=== PATIENT | female | born 1940 | race African-American/Black ===

== ENCOUNTER 2023-02-04 11:52 | Emergency (ER) | payer MEDICARE ==
[~2023-02-04] VITALS: Ht 157.5 cm; Wt 66.7 kg
[2023-02-04 12:18] VITALS: BP 113/81
--- NOTE | 2023-02-04 12:25 | NUR ---
PT MOVED TO BED 10 BY [facility]
[2023-02-04] MEDS ORDERED: NACL 0.9% 1,000 ML IV ONE (13:05)
[2023-02-04] MEDS ORDERED: VANCOMYCIN 1GM/DEXT 5% PREMIX 200 ML IV ONE (14:45)
[2023-02-04] MEDS ORDERED: MEROPENEM 1,000 MG in NACL 0.9% 50 ML IV ONE (14:45)
[2023-02-04] MEDS ORDERED: VANCOMYCIN PER PHARMACY MC PRN (14:45)
[2023-02-04] MEDS ORDERED: VANCOMYCIN 1,000 MG VIAL ONE (15:10)
[2023-02-04 15:12] LABS: BASOPHILS # (AUTO) 0.1 K/uL (0.00-0.22); BASOPHILS % (AUTO) 0.5 % (0.0-2.0); EOSINOPHILS % (AUTO) 0.1 % (0.0-4.0); HEMATOCRIT 33.4 % (36-48); HEMOGLOBIN 10.3 g/dL (12.0-16.0); LYMPHOCYTES # (AUTO) 3.2 K/uL (2.5-16.5); LYMPHOCYTES % (AUTO) 18.1 % (20.5-51.1); MEAN CORPUSCULAR HEMOGLOBIN 28 pg (27-31); MEAN CORPUSCULAR HGB CONC 31 g/dL (33-37); MONOCYTES # (AUTO) 0.8 K/uL (0.8-1.0); MONOCYTES % (AUTO) 4.6 % (1.7-9.3); NEUTROPHILS # (AUTO) 13.4 K/uL (1.8-7.7); NEUTROPHILS % (AUTO) 76.7 % (42.2-75.2); PLATELET COUNT (AUTO) 237 K/uL (140-450); RED BLOOD CELL COUNT(AUTO) 3.67 MIL/uL (4.20-5.40); RED CELL DISTRIBUTION WIDTH 16.3 % (11.6-13.7); WHITE BLOOD COUNT (AUTO) 17.4 K/uL (4.8-10.8)
[2023-02-04] MEDS ORDERED: VANCOMYCIN 1,000 MG in DEXTROSE 5% 250 ML IV ONE (15:20)
--- NOTE | 2023-02-04 15:31 | NUR ---
ASSUMED PATIENT CARE, NURSING ASSESSMENT COMPLETED.
[2023-02-04 15:51] LABS: ALBUMIN 2.5 g/dL (3.4-5.0); ANION GAP 18.1 (8-16); ASPARTATE AMINOTRANSFERASE 25 U/L (15-37); CARBON DIOXIDE 22.9 mmol/L (21-32); CHLORIDE 125 mmol/L (98-107); CREATININE 2.1 mg/dL (0.6-1.3); MAGNESIUM 1.9 mg/dL (1.8-2.4); PHOSPHORUS 3.8 mg/dL (2.5-4.9); TOTAL BILIRUBIN 0.8 mg/dL (0.0-1.0); UREA NITROGEN, BLOOD 48 mg/dL (7-18)
[2023-02-04 15:57] LABS: ACETAMINOPHEN < 0.5 ug/ml (10-30); GLUCOSE 537 mg/dL (74-106); SALICYLATE < 2.8 mg/dL (2.8-20.0); SODIUM SERUM 162 mmol/L (136-145)
--- NOTE | 2023-02-04 18:59 | NUR ---
DISPO AND MEDICAL DECISION TRANSFER TO [facility], PATIENT CARE REPORT GIVEN CHARGE NURSE FOR STEP DOWN UNIT [phone].
[2023-02-04] MEDS ORDERED: INSULIN LISPRO 100 UNITS/ML VIAL SUBQ ONE (19:05)
--- NOTE | 2023-02-04 20:14 | NUR ---
CODE STATUS SWITCHED TO DNR/DNI AND CONFIRMED WITH DAUGHTER FABIÁN ALVAREZ.
[2023-02-04 21:14] VITALS: BP 133/70
--- NOTE | 2023-02-04 21:17 | NUR ---
Patient to be transferred to . Is being transferred due to . Receiving facility has accepting physician and available space. ER physician has signed transfer form. Patient or responsible constitution party has agreed to transfer and signed form. Patient belongings inventoried and will be sent with patient. Copy of nursing notes, lab reports, EKG, Physicians Orders and X-rays to be sent with patient. Report called to [employer]ER at receiving facility.
[2023-02-04 22:14] LABS: CKMB RELATIVE INDEX 0.3 (0.0-2.5); CREATINE KINASE MB 3.3 ng/mL (0-3.6)
== END 2023-02-04 21:14 | disposition short-term general hospital (02) ==
LOC: MED 11:52
DX: M62.82 Rhabdomyolysis (principal); Z20.822 Contact with and (suspected) exposure to COVID-19; E87.0 Hyperosmolality and hypernatremia
CPT/HCPCS: 36415; 36600; 70450; 71045; 80053; 82550; 82553; 82803; 83605; 83615; 83735; 83880; 84100; 84484; 85025; 87040; 87086; 87426; 93005; 96361; 96365; 96366; 96367; 96372; 99285; G0480; G0482; J1815; J2185; J3370; J7030; Q0092

== ENCOUNTER 2024-05-26 12:14 | Inpatient (IN) | payer MEDICARE ==
[~2024-05-26] VITALS: Ht 167.6 cm; Wt 70.3 kg
[2024-05-26] MEDS: DEXT 5% / NACL 0.45% 1,000 ML IV SCH (09:35)
[2024-05-26 12:32] VITALS: O2SAT 100
[2024-05-26 12:43] VITALS: BP 89/53; PULSE 134; RESP 22; TEMP 97.6; O2SAT 91
[2024-05-26 13:05] LABS: BLOOD GAS PCO2 18.3 mmHg (35-45); BLOOD GAS PO2 66.6 mmHg (75-100)
[2024-05-26 13:06] LABS: BLOOD GAS BASE EXCESS -11.1 mmol/L (-2.0-2.0); BLOOD GAS HCO3 11.1 mmol/L (22-26); BLOOD GAS O2 SAT% 92.8 % (92.0-98.5)
[2024-05-26 13:19] LABS: HEMOGLOBIN 12.7 g/dL (12.0-16.0); MEAN CORPUSCULAR HEMOGLOBIN 29 pg (27-31); MEAN CORPUSCULAR HGB CONC 32 g/dL (33-37); MEAN CORPUSCULAR VOLUME 91.9 fL (80-94); PLATELET COUNT (AUTO) 346 K/uL (140-450); RED BLOOD CELL COUNT(AUTO) 4.35 MIL/uL (4.20-5.40); RED CELL DISTRIBUTION WIDTH 20.8 % (11.6-13.7); WHITE BLOOD COUNT (AUTO) 8.9 K/uL (4.8-10.8)
[2024-05-26] MEDS: VANCOMYCIN 1,000 MG in DEXTROSE 5% 250 ML IV ONE (13:30)
[2024-05-26] MEDS: NACL 0.9% 1,000 ML IV SCH (13:34)
[2024-05-26] MEDS ORDERED: CEFEPIME 1,000 MG VIAL ONE (13:39)
[2024-05-26] MEDS ORDERED: VANCOMYCIN 1,000 MG VIAL ONE (13:39)
[2024-05-26] MEDS: ACETAMINOPHEN 650 MG SUPP RC ONE (13:42)
[2024-05-26 14:04] LABS: MONOCYTES % (MANUAL) 6 % (5-12)
[2024-05-26 14:05] LABS: ALANINE AMINOTRANSFERASE 16 U/L (12-78); ALBUMIN 2.5 g/dL (3.4-5.0); ALKALINE PHOSPHATASE 67 U/L (50-136); ASPARTATE AMINOTRANSFERASE 18 U/L (15-37); BILIRUBIN,DIRECT 0.2 mg/dL (0.0-0.3); TOTAL BILIRUBIN 0.5 mg/dL (0.0-1.0); TOTAL PROTEIN, SERUM 7.9 g/dL (6.4-8.2)
[2024-05-26 14:06] LABS: INR 1.17 (0.8-1.2); PROTHROMBIN TIME 12.2 secs (10.8-13.4)
[2024-05-26 14:07] LABS: LYMPHOCYTES % (MANUAL) 18 % (20-46)
[2024-05-26] MEDS: CEFEPIME 1,000 MG in DEXTROSE 5% 50 ML IV ONE (14:10)
[2024-05-26 14:12] LABS: HYPOCHROMASIA 1+; PLATELET ESTIMATE ADEQUATE
[2024-05-26 14:13] LABS: LACTIC ACID 9.4 mmol/L (0.4-2.0)
[2024-05-26 14:15] LABS: ANION GAP 29.2 (8-16); CALCIUM 10.7 mg/dL (8.5-10.1); CARBON DIOXIDE 10.8 mmol/L (21-32); CHLORIDE 111 mmol/L (98-107); CREATININE 2.2 mg/dL (0.6-1.3); SODIUM SERUM 146 mmol/L (136-145)
[2024-05-26 14:18] LABS: GLUCOSE 554 mg/dL (74-106); UREA NITROGEN, BLOOD 109 mg/dL (7-18)
[2024-05-26] MEDS ORDERED: DEXTROSE 50% 50 ML SYR IVP PRN ×2 (14:25→16:50)
[2024-05-26] MEDS ORDERED: DEXT 5% / NACL 0.45% 1,000 ML IV SCH ×2 (14:25→16:50)
[2024-05-26] MEDS ORDERED: NACL 0.9% 1,000 ML IV SCH ×2 (14:25→16:50)
[2024-05-26] MEDS ORDERED: INSULIN LISPRO SLIDING SCALE 100 UNITS/ML VIAL SUBQ PRN (14:25)
[2024-05-26] MEDS: NACL 0.9% 2,000 ML IV ONE (14:49)
[2024-05-26] MEDS: NOREPINEPHRINE 4 MG in DEXTROSE 5% 250 ML IV ONE (15:35)
[2024-05-26] MEDS: INSULIN REGULAR, HUMAN 100 UNIT in NACL 0.9% 100 ML IV SCH (15:35)
[2024-05-26] MEDS: BLOOD GLUCOSE MONITORING 1 DEV DEV FS SCH ×2 (15:41→20:02)
[2024-05-26] MEDS ORDERED: BLOOD GLUCOSE MONITORING 1 DEV DEV FS SCH (16:00)
[2024-05-26] MEDS ORDERED: POTASSIUM CHLORIDE 40 MEQ, LIDOCAINE MPF 1% 25 MG in NACL 0.9% 250 ML IV PRN ×2 (16:50)
[2024-05-26] MEDS ORDERED: ACETAMINOPHEN 325 MG TAB PO PRN (16:50)
[2024-05-26] MEDS ORDERED: INSULIN REGULAR, HUMAN 100 UNIT/ML VIAL IVP SCH (16:50)
[2024-05-26] MEDS ORDERED: ZOLPIDEM 5 MG TAB PO PRN (16:50)
[2024-05-26] MEDS ORDERED: guaiFENesin DM 200/20 MG-10 ML 10 ML UDC PO PRN (16:50)
[2024-05-26] MEDS ORDERED: VANCOMYCIN PER PHARMACY MC SCH ×2 (16:50→17:30)
[2024-05-26] MEDS ORDERED: INSULIN REGULAR, HUMAN 100 UNIT in NACL 0.9% 100 ML IV SCH (16:50)
[2024-05-26] MEDS ORDERED: DOCUSATE SODIUM 100 MG GELCAP PO PRN (16:50)
[2024-05-26] MEDS ORDERED: POTA8TAB19 PO (17:59)
[2024-05-26] MEDS ORDERED: SIMV-373 PO (17:59)
[2024-05-26] MEDS ORDERED: XALOS OP (17:59)
[2024-05-26] MEDS ORDERED: LINA5TAB PO (17:59)
[2024-05-26] MEDS ORDERED: PROC4I (17:59)
[2024-05-26] MEDS ORDERED: LOV60I SC (17:59)
[2024-05-26] MEDS: ONDANSETRON 4 MG/2 ML VIAL IM/IVP PRN (18:43)
[2024-05-26] MEDS ORDERED: PIPERACILLIN/TAZOBACTAM 2.25 GM VIAL IV ONE (20:04)
[2024-05-26] MEDS: PIPERACILLIN/TAZOBACTAM 2.25 GM in DEXTROSE 5% 50 ML IV SCH (20:06)
[2024-05-26] MEDS ORDERED: PIPERACILLIN/TAZOBACTAM 3.375 GM in DEXTROSE 5% 50 ML IV SCH (21:00)
[2024-05-26 21:33] LABS: LACTIC ACID 6.6 mmol/L (0.4-2.0)
[2024-05-26 22:34] LABS: ANION GAP 22.5 (8-16); CALCIUM 9.4 mg/dL (8.5-10.1); CARBON DIOXIDE 13.8 mmol/L (21-32); CHLORIDE 116 mmol/L (98-107); CREATININE 2.4 mg/dL (0.6-1.3); POTASSIUM 4.3 mmol/L (3.5-5.1); SODIUM SERUM 148 mmol/L (136-145)
[2024-05-26 22:36] LABS: GLUCOSE 484 mg/dL (74-106); UREA NITROGEN, BLOOD 111 mg/dL (7-18)
[2024-05-26 22:37] LABS: MAGNESIUM 1.8 mg/dL (1.8-2.4); PHOSPHORUS 3.4 mg/dL (2.5-4.9)
[2024-05-27] VITALS (25 sets, daily range): BP systolic 83–158; BP diastolic 54–82; PULSE 79–106; RESP 12–26; TEMP 97.5–98.3; O2SAT 95–100
[2024-05-27] MEDS: NACL 0.9% 1,000 ML IV SCH (00:18)
[2024-05-27] MEDS ORDERED: PIPERACILLIN/TAZOBACTAM 2.25 GM VIAL IV ONE ×2 (00:28→05:31)
[2024-05-27 01:15] LABS: ANION GAP 22.4 (8-16); CALCIUM 9.5 mg/dL (8.5-10.1); CARBON DIOXIDE 17.4 mmol/L (21-32); CHLORIDE 114 mmol/L (98-107); CREATININE 2.6 mg/dL (0.6-1.3); POTASSIUM 4.8 mmol/L (3.5-5.1); SODIUM SERUM 149 mmol/L (136-145)
[2024-05-27 01:18] LABS: GLUCOSE 462 mg/dL (74-106)
[2024-05-27 01:19] LABS: UREA NITROGEN, BLOOD 112 mg/dL (7-18)
[2024-05-27 01:22] LABS: MAGNESIUM 1.9 mg/dL (1.8-2.4)
[2024-05-27] MEDS: NACL 0.9% 1,000 ML IV ONE (01:59)
[2024-05-27 04:28] LABS: BASOPHILS % (AUTO) 0.2 % (0.0-2.0); EOSINOPHILS % (AUTO) 0.1 % (0.0-4.0); HEMATOCRIT 32.3 % (36-48); HEMOGLOBIN 10.2 g/dL (12.0-16.0); LYMPHOCYTES # (AUTO) 1.6 K/uL (2.5-16.5); LYMPHOCYTES % (AUTO) 12.1 % (20.5-51.1); MEAN CORPUSCULAR HEMOGLOBIN 29 pg (27-31); MEAN CORPUSCULAR HGB CONC 32 g/dL (33-37); MEAN CORPUSCULAR VOLUME 91.2 fL (80-94); MONOCYTES # (AUTO) 0.2 K/uL (0.8-1.0); MONOCYTES % (AUTO) 1.5 % (1.7-9.3); NEUTROPHILS # (AUTO) 11.1 K/uL (1.8-7.7); NEUTROPHILS % (AUTO) 86.1 % (42.2-75.2); PLATELET COUNT (AUTO) 243 K/uL (140-450); RED BLOOD CELL COUNT(AUTO) 3.54 MIL/uL (4.20-5.40); WHITE BLOOD COUNT (AUTO) 12.9 K/uL (4.8-10.8)
[2024-05-27 04:49] LABS: ANION GAP 20.9 (8-16); CALCIUM 8.8 mg/dL (8.5-10.1); CARBON DIOXIDE 14.9 mmol/L (21-32); CHLORIDE 118 mmol/L (98-107); GLUCOSE 297 mg/dL (74-106); POTASSIUM 3.8 mmol/L (3.5-5.1); SODIUM SERUM 150 mmol/L (136-145)
[2024-05-27 04:52] LABS: CREATININE 2.2 mg/dL (0.6-1.3); UREA NITROGEN, BLOOD 104 mg/dL (7-18)
[2024-05-27 04:54] LABS: MAGNESIUM 1.8 mg/dL (1.8-2.4)
[2024-05-27] MEDS: BLOOD GLUCOSE MONITORING 1 DEV DEV FS SCH ×2 (07:30→20:30)
[2024-05-27] MEDS: PANTOPRAZOLE 40 MG TABEC PO SCH (08:38)
[2024-05-27] MEDS: VANCOMYCIN 500 MG in DEXTROSE 5% 100 ML IV SCH (08:39)
[2024-05-27 09:28] LABS: ANION GAP 20.6 (8-16); CALCIUM 9.6 mg/dL (8.5-10.1); CARBON DIOXIDE 17.4 mmol/L (21-32); CHLORIDE 119 mmol/L (98-107); CREATININE 2.1 mg/dL (0.6-1.3); GLUCOSE 161 mg/dL (74-106); SODIUM SERUM 153 mmol/L (136-145)
[2024-05-27 09:30] LABS: UREA NITROGEN, BLOOD 109 mg/dL (7-18)
[2024-05-27 09:35] LABS: MAGNESIUM 1.9 mg/dL (1.8-2.4); PHOSPHORUS 3.1 mg/dL (2.5-4.9)
[2024-05-27] MEDS: INSULIN REGULAR, HUMAN 100 UNIT in NACL 0.9% 100 ML IV SCH (09:38)
[2024-05-27 12:44] LABS: MAGNESIUM 1.9 mg/dL (1.8-2.4); PHOSPHORUS 3.3 mg/dL (2.5-4.9)
[2024-05-27] MEDS ORDERED: HYDRAGUARD CREAM TP PRN (12:45)
[2024-05-27] MEDS ORDERED: THERAHONEY GEL 42.5 GM TP PRN (12:45)
[2024-05-27] MEDS ORDERED: FOAM DRESSING TP PRN (12:45)
[2024-05-27] MEDS ORDERED: MILD SOAP AND WATER TP PRN (12:45)
[2024-05-27 13:37] LABS: ANION GAP 22.7 (8-16); CALCIUM 9.4 mg/dL (8.5-10.1); CARBON DIOXIDE 16.9 mmol/L (21-32); CHLORIDE 117 mmol/L (98-107); GLUCOSE 154 mg/dL (74-106); POTASSIUM 4.6 mmol/L (3.5-5.1); SODIUM SERUM 152 mmol/L (136-145)
[2024-05-27 13:38] LABS: UREA NITROGEN, BLOOD 106 mg/dL (7-18)
[2024-05-27] MEDS: FOAM DRESSING TP SCH (13:48)
[2024-05-27] MEDS: HYDRAGUARD CREAM TP SCH (13:58)
[2024-05-27] MEDS: MILD SOAP AND WATER TP SCH (13:58)
[2024-05-27] MEDS: THERAHONEY GEL 42.5 GM TP SCH (13:58)
[2024-05-27 17:05] LABS: CALCIUM 8.8 mg/dL (8.5-10.1); CARBON DIOXIDE 10.5 mmol/L (21-32); CHLORIDE 116 mmol/L (98-107); CREATININE 1.8 mg/dL (0.6-1.3); GLUCOSE 177 mg/dL (74-106); POTASSIUM 4.5 mmol/L (3.5-5.1); SODIUM SERUM 147 mmol/L (136-145)
[2024-05-27 17:07] LABS: UREA NITROGEN, BLOOD 100 mg/dL (7-18)
[2024-05-27 20:33] LABS: ANION GAP 20.9 (8-16); CALCIUM 9.2 mg/dL (8.5-10.1); CHLORIDE 116 mmol/L (98-107); CREATININE 1.9 mg/dL (0.6-1.3); GLUCOSE 158 mg/dL (74-106); POTASSIUM 3.9 mmol/L (3.5-5.1); SODIUM SERUM 152 mmol/L (136-145)
[2024-05-27 20:34] LABS: UREA NITROGEN, BLOOD 98 mg/dL (7-18)
[2024-05-27 20:44] LABS: MAGNESIUM 1.8 mg/dL (1.8-2.4); PHOSPHORUS 3.1 mg/dL (2.5-4.9)
[2024-05-28] VITALS (27 sets, daily range): BP systolic 92–151; BP diastolic 41–85; PULSE 69–103; RESP 12–20; TEMP 97.1–98.2; O2SAT 96–100
[2024-05-28 00:13] LABS: APPEARANCE,URINE CLEAR (CLEAR); BILIRUBIN,URINE NEGATIVE (NEGATIVE); BLOOD, URINE 1+ (NEGATIVE); COLOR,URINE YELLOW (YELLOW); LEUKOCYTE ESTERASE ,URINE TRACE (NEGATIVE); NITRITE, URINE POSITIVE (NEGATIVE); PH,URINE 5.5 (5.0-9.0); PROTEIN,URINE TRACE (NEGATIVE); UGLUCOSE NEGATIVE (NEGATIVE); UROBILINOGEN,URINE 0.2 EU/dL (0.2 - 1)
[2024-05-28 00:24] LABS: BACTERIA,URINE >30 (MANY) /HPF (None Seen); MUCUS,URINE 1+ /LPF (None Seen); SQUAMOUS EPITHELIAL CELL,UR 0-3 (FEW) /LPF (0-3 (FEW))
[2024-05-28 00:33] LABS: ANION GAP 20.1 (8-16); CALCIUM 9.1 mg/dL (8.5-10.1); CARBON DIOXIDE 14.8 mmol/L (21-32); CHLORIDE 117 mmol/L (98-107); CREATININE 1.6 mg/dL (0.6-1.3); GLUCOSE 158 mg/dL (74-106); SODIUM SERUM 149 mmol/L (136-145)
[2024-05-28 00:35] LABS: POTASSIUM 2.9 mmol/L (3.5-5.1); UREA NITROGEN, BLOOD 82 mg/dL (7-18)
[2024-05-28 01:07] LABS: MAGNESIUM 1.7 mg/dL (1.8-2.4); PHOSPHORUS 2.6 mg/dL (2.5-4.9)
[2024-05-28] MEDS: KCL 20 MEQ IN 100 mL PREMIX 200 ML IV ONE ×2 (02:38→02:44)
[2024-05-28 04:53] LABS: BASOPHILS % (AUTO) 0.1 % (0.0-2.0); EOSINOPHILS # (AUTO) 0.2 K/uL (0-0.4); HEMATOCRIT 30.6 % (36-48); HEMOGLOBIN 9.7 g/dL (12.0-16.0); LYMPHOCYTES # (AUTO) 0.8 K/uL (2.5-16.5); LYMPHOCYTES % (AUTO) 5.1 % (20.5-51.1); MEAN CORPUSCULAR HEMOGLOBIN 29 pg (27-31); MEAN CORPUSCULAR HGB CONC 32 g/dL (33-37); MEAN CORPUSCULAR VOLUME 91.1 fL (80-94); MONOCYTES # (AUTO) 0.4 K/uL (0.8-1.0); MONOCYTES % (AUTO) 2.2 % (1.7-9.3); NEUTROPHILS # (AUTO) 14.6 K/uL (1.8-7.7); NEUTROPHILS % (AUTO) 91.6 % (42.2-75.2); PLATELET COUNT (AUTO) 223 K/uL (140-450); RED BLOOD CELL COUNT(AUTO) 3.36 MIL/uL (4.20-5.40); RED CELL DISTRIBUTION WIDTH 20.5 % (11.6-13.7)
[2024-05-28 05:05] LABS: CALCIUM 8.4 mg/dL (8.5-10.1); CARBON DIOXIDE 18.8 mmol/L (21-32); CHLORIDE 119 mmol/L (98-107); CREATININE 1.4 mg/dL (0.6-1.3); GLUCOSE 165 mg/dL (74-106); SODIUM SERUM 140 mmol/L (136-145)
[2024-05-28 05:09] LABS: MAGNESIUM 1.5 mg/dL (1.8-2.4); PHOSPHORUS 2.5 mg/dL (2.5-4.9)
[2024-05-28 05:25] LABS: ANION GAP 14.9 (8-16); POTASSIUM 12.7 mmol/L (3.5-5.1)
[2024-05-28 05:26] LABS: UREA NITROGEN, BLOOD 74 mg/dL (7-18)
[2024-05-28 07:16] LABS: ANION GAP 17.5 (8-16); CALCIUM 9.4 mg/dL (8.5-10.1); CARBON DIOXIDE 16.4 mmol/L (21-32); CHLORIDE 116 mmol/L (98-107); CREATININE 1.5 mg/dL (0.6-1.3); GLUCOSE 156 mg/dL (74-106); POTASSIUM 3.9 mmol/L (3.5-5.1); SODIUM SERUM 146 mmol/L (136-145)
[2024-05-28 07:55] LABS: UREA NITROGEN, BLOOD 73 mg/dL (7-18)
[2024-05-28 08:29] LABS: ANION GAP 15.9 (8-16); CALCIUM 9.4 mg/dL (8.5-10.1); CARBON DIOXIDE 17.5 mmol/L (21-32); CHLORIDE 116 mmol/L (98-107); CREATININE 1.5 mg/dL (0.6-1.3); GLUCOSE 167 mg/dL (74-106); POTASSIUM 3.4 mmol/L (3.5-5.1); SODIUM SERUM 146 mmol/L (136-145)
[2024-05-28 08:31] LABS: MAGNESIUM 1.7 mg/dL (1.8-2.4); PHOSPHORUS 2.4 mg/dL (2.5-4.9)
[2024-05-28 08:33] LABS: UREA NITROGEN, BLOOD 73 mg/dL (7-18)
[2024-05-28] MEDS: MAG SULF 2000 MG/WATER PREMIX 50 ML IV SCH (10:46)
[2024-05-28] MEDS: POTASSIUM PHOSPHATE 15 MM in NACL 0.9% 250 ML IV SCH (12:22)
[2024-05-28 12:49] LABS: ANION GAP 18.2 (8-16); CALCIUM 8.8 mg/dL (8.5-10.1); CARBON DIOXIDE 15.9 mmol/L (21-32); CHLORIDE 116 mmol/L (98-107); CREATININE 1.2 mg/dL (0.6-1.3); GLUCOSE 117 mg/dL (74-106); POTASSIUM 3.1 mmol/L (3.5-5.1); SODIUM SERUM 147 mmol/L (136-145)
[2024-05-28 12:53] LABS: MAGNESIUM 2.3 mg/dL (1.8-2.4)
[2024-05-28 12:54] LABS: UREA NITROGEN, BLOOD 64 mg/dL (7-18)
[2024-05-28] MEDS ORDERED: KCL 20 MEQ IN 100 mL PREMIX 200 ML IV ONE (13:15)
[2024-05-28] MEDS: HYDROcodone/APAP 7.5/325 MG 1 TAB PO PRN (16:14)
[2024-05-28 16:31] LABS: ANION GAP 16.5 (8-16); CALCIUM 7.2 mg/dL (8.5-10.1); CARBON DIOXIDE 15.3 mmol/L (21-32); CHLORIDE 118 mmol/L (98-107); CREATININE 0.9 mg/dL (0.6-1.3); GLUCOSE 127 mg/dL (74-106); SODIUM SERUM 147 mmol/L (136-145); UREA NITROGEN, BLOOD 51 mg/dL (7-18)
[2024-05-28 16:33] LABS: POTASSIUM 2.8 mmol/L (3.5-5.1)
[2024-05-28 16:40] LABS: MAGNESIUM 1.9 mg/dL (1.8-2.4); PHOSPHORUS 2.4 mg/dL (2.5-4.9)
[2024-05-28] MEDS: KCL 20 MEQ IN 100 mL PREMIX 200 ML IV PRN (16:56)
[2024-05-28 20:34] LABS: CALCIUM 8.6 mg/dL (8.5-10.1); CARBON DIOXIDE 18.8 mmol/L (21-32); CHLORIDE 114 mmol/L (98-107); CREATININE 1.2 mg/dL (0.6-1.3); GLUCOSE 149 mg/dL (74-106); POTASSIUM 3.8 mmol/L (3.5-5.1); SODIUM SERUM 144 mmol/L (136-145); UREA NITROGEN, BLOOD 57 mg/dL (7-18)
[2024-05-28 20:44] LABS: MAGNESIUM 2.1 mg/dL (1.8-2.4); PHOSPHORUS 3.3 mg/dL (2.5-4.9)
[2024-05-29] VITALS (27 sets, daily range): BP systolic 123–155; BP diastolic 67–93; PULSE 74–90; RESP 12–18; TEMP 97.3–98; O2SAT 94–99
[2024-05-29 00:44] LABS: CALCIUM 8.5 mg/dL (8.5-10.1); CARBON DIOXIDE 16.6 mmol/L (21-32); CHLORIDE 114 mmol/L (98-107); CREATININE 1.1 mg/dL (0.6-1.3); GLUCOSE 154 mg/dL (74-106); POTASSIUM 3.6 mmol/L (3.5-5.1); SODIUM SERUM 143 mmol/L (136-145); UREA NITROGEN, BLOOD 56 mg/dL (7-18)
[2024-05-29 05:44] LABS: BASOPHILS % (AUTO) 0.2 % (0.0-2.0); EOSINOPHILS # (AUTO) 0.2 K/uL (0-0.4); EOSINOPHILS % (AUTO) 1.2 % (0.0-4.0); HEMOGLOBIN 8.3 g/dL (12.0-16.0); LYMPHOCYTES # (AUTO) 1.1 K/uL (2.5-16.5); LYMPHOCYTES % (AUTO) 5.9 % (20.5-51.1); MEAN CORPUSCULAR HEMOGLOBIN 29 pg (27-31); MEAN CORPUSCULAR HGB CONC 32 g/dL (33-37); MEAN CORPUSCULAR VOLUME 90.4 fL (80-94); MONOCYTES # (AUTO) 0.3 K/uL (0.8-1.0); MONOCYTES % (AUTO) 1.5 % (1.7-9.3); NEUTROPHILS # (AUTO) 17.3 K/uL (1.8-7.7); NEUTROPHILS % (AUTO) 91.2 % (42.2-75.2); PLATELET COUNT (AUTO) 143 K/uL (140-450); RED BLOOD CELL COUNT(AUTO) 2.88 MIL/uL (4.20-5.40); RED CELL DISTRIBUTION WIDTH 20.9 % (11.6-13.7); WHITE BLOOD COUNT (AUTO) 18.9 K/uL (4.8-10.8)
[2024-05-29 06:05] LABS: CALCIUM 8.5 mg/dL (8.5-10.1); CARBON DIOXIDE 15.6 mmol/L (21-32); CHLORIDE 113 mmol/L (98-107); GLUCOSE 150 mg/dL (74-106); POTASSIUM 3.6 mmol/L (3.5-5.1); SODIUM SERUM 142 mmol/L (136-145); UREA NITROGEN, BLOOD 51 mg/dL (7-18)
[2024-05-29 08:24] LABS: ANION GAP 16.1 (8-16); CALCIUM 8.3 mg/dL (8.5-10.1); CARBON DIOXIDE 15.2 mmol/L (21-32); CHLORIDE 114 mmol/L (98-107); GLUCOSE 155 mg/dL (74-106); POTASSIUM 3.3 mmol/L (3.5-5.1); SODIUM SERUM 142 mmol/L (136-145); UREA NITROGEN, BLOOD 45 mg/dL (7-18)
[2024-05-29] MEDS ORDERED: VANCOMYCIN HCL 750 MG in DEXTROSE 5% 250 ML IV SCH (09:00)
[2024-05-29] MEDS: VANCOMYCIN HCL 750 MG in DEXTROSE 5% 250 ML IV SCH (09:03)
[2024-05-29] MEDS: PANTOPRAZOLE 40 MG INJ VIAL IVP SCH (09:20)
[2024-05-29] MEDS: FLUCONAZOLE 100 MG/NS PREMIX 50 ML IV SCH (13:54)
[2024-05-29 15:07] LABS: ANION GAP 17.8 (8-16); CALCIUM 8.9 mg/dL (8.5-10.1); CARBON DIOXIDE 15.7 mmol/L (21-32); CHLORIDE 111 mmol/L (98-107); GLUCOSE 157 mg/dL (74-106); POTASSIUM 3.5 mmol/L (3.5-5.1); SODIUM SERUM 141 mmol/L (136-145); UREA NITROGEN, BLOOD 42 mg/dL (7-18)
[2024-05-29] MEDS: DEXTROSE 50% 50 ML SYR IVP PRN (15:12)
[2024-05-29] MEDS: KCL 20 MEQ IN 100 mL PREMIX 200 ML IV ONE (15:48)
[2024-05-29] MEDS: MAG SULF 2000 MG/WATER PREMIX 50 ML IV SCH (20:35)
[2024-05-30] VITALS (26 sets, daily range): BP systolic 108–162; BP diastolic 50–94; PULSE 65–86; RESP 12–20; TEMP 96.5–97.8; O2SAT 95–100
[2024-05-30 00:48] LABS: ANION GAP 15.8 (8-16); CALCIUM 8.5 mg/dL (8.5-10.1); CARBON DIOXIDE 17.7 mmol/L (21-32); CHLORIDE 109 mmol/L (98-107); CREATININE 0.9 mg/dL (0.6-1.3); GLUCOSE 114 mg/dL (74-106); POTASSIUM 3.5 mmol/L (3.5-5.1); SODIUM SERUM 139 mmol/L (136-145); UREA NITROGEN, BLOOD 33 mg/dL (7-18)
[2024-05-30 01:00] LABS: MAGNESIUM 1.9 mg/dL (1.8-2.4)
[2024-05-30 05:50] LABS: HEMATOCRIT 27.4 % (36-48); HEMOGLOBIN 8.9 g/dL (12.0-16.0); MEAN CORPUSCULAR HEMOGLOBIN 29 pg (27-31); MEAN CORPUSCULAR HGB CONC 33 g/dL (33-37); MEAN CORPUSCULAR VOLUME 88.6 fL (80-94); PLATELET COUNT (AUTO) 177 K/uL (140-450); RED BLOOD CELL COUNT(AUTO) 3.09 MIL/uL (4.20-5.40); RED CELL DISTRIBUTION WIDTH 19.6 % (11.6-13.7); WHITE BLOOD COUNT (AUTO) 14.8 K/uL (4.8-10.8)
[2024-05-30 06:02] LABS: ANION GAP 14.1 (8-16); CALCIUM 8.6 mg/dL (8.5-10.1); CARBON DIOXIDE 18.2 mmol/L (21-32); CHLORIDE 113 mmol/L (98-107); CREATININE 0.8 mg/dL (0.6-1.3); GLUCOSE 128 mg/dL (74-106); POTASSIUM 3.3 mmol/L (3.5-5.1); SODIUM SERUM 142 mmol/L (136-145); UREA NITROGEN, BLOOD 28 mg/dL (7-18)
[2024-05-30 06:09] LABS: MAGNESIUM 1.9 mg/dL (1.8-2.4); PHOSPHORUS 2.9 mg/dL (2.5-4.9)
[2024-05-30 08:10] LABS: ANISOCYTOSIS 2+; BASOPHILS % (MANUAL) 0 % (0-2); BLASTS, MANUAL % 0 % (0-0); BURR CELLS 1+; EOSINOPHILS % (MANUAL) 1 % (0-4); LYMPHOCYTES % (MANUAL) 5 % (20-46); METAMYELOCYTES % 0 % (0-0); MONOCYTES % (MANUAL) 1 % (5-12); MYELOCYTES % 0 % (0-0); OTHER CELLS,MANUAL % 0 (0-0); OVALOCYTES 1+; PLASMA CELLS 0; PLATELET ESTIMATE ADEQUATE; PROMYELOCYTES % 0 % (0-0); SMUDGE CELLS 0
[2024-05-30 08:11] LABS: SCHISTOCYTES 1+
[2024-05-30 08:34] LABS: ALANINE AMINOTRANSFERASE 31 U/L (12-78); ALBUMIN 1.4 g/dL (3.4-5.0); ALKALINE PHOSPHATASE 114 U/L (50-136); ANION GAP 14.8 (8-16); ASPARTATE AMINOTRANSFERASE 18 U/L (15-37); CALCIUM 8.6 mg/dL (8.5-10.1); CARBON DIOXIDE 17.4 mmol/L (21-32); CHLORIDE 115 mmol/L (98-107); CREATININE 0.8 mg/dL (0.6-1.3); GLUCOSE 125 mg/dL (74-106); MAGNESIUM 1.8 mg/dL (1.8-2.4); POTASSIUM 4.2 mmol/L (3.5-5.1); SODIUM SERUM 143 mmol/L (136-145); TOTAL BILIRUBIN 0.4 mg/dL (0.0-1.0); TOTAL PROTEIN, SERUM 5.4 g/dL (6.4-8.2); UREA NITROGEN, BLOOD 27 mg/dL (7-18)
[2024-05-30 12:55] LABS: ALANINE AMINOTRANSFERASE 26 U/L (12-78); ALBUMIN 1.4 g/dL (3.4-5.0); ALKALINE PHOSPHATASE 112 U/L (50-136); ANION GAP 13.7 (8-16); ASPARTATE AMINOTRANSFERASE 14 U/L (15-37); CALCIUM 8.6 mg/dL (8.5-10.1); CARBON DIOXIDE 18.1 mmol/L (21-32); CHLORIDE 114 mmol/L (98-107); CREATININE 0.7 mg/dL (0.6-1.3); GLUCOSE 147 mg/dL (74-106); MAGNESIUM 1.8 mg/dL (1.8-2.4); PHOSPHORUS 3.1 mg/dL (2.5-4.9); POTASSIUM 3.8 mmol/L (3.5-5.1); SODIUM SERUM 142 mmol/L (136-145); TOTAL BILIRUBIN 0.4 mg/dL (0.0-1.0); TOTAL PROTEIN, SERUM 5.4 g/dL (6.4-8.2); UREA NITROGEN, BLOOD 25 mg/dL (7-18)
[2024-05-30 18:28] LABS: ALANINE AMINOTRANSFERASE 25 U/L (12-78); ALBUMIN 1.3 g/dL (3.4-5.0); ALKALINE PHOSPHATASE 91 U/L (50-136); ANION GAP 16.3 (8-16); ASPARTATE AMINOTRANSFERASE 16 U/L (15-37); CARBON DIOXIDE 15.9 mmol/L (21-32); CHLORIDE 110 mmol/L (98-107); CREATININE 0.7 mg/dL (0.6-1.3); GLUCOSE 154 mg/dL (74-106); MAGNESIUM 1.6 mg/dL (1.8-2.4); PHOSPHORUS 3.3 mg/dL (2.5-4.9); POTASSIUM 3.2 mmol/L (3.5-5.1); SODIUM SERUM 139 mmol/L (136-145); TOTAL BILIRUBIN 0.4 mg/dL (0.0-1.0); TOTAL PROTEIN, SERUM 4.8 g/dL (6.4-8.2); UREA NITROGEN, BLOOD 22 mg/dL (7-18)
[2024-05-30 22:52] LABS: ALANINE AMINOTRANSFERASE 26 U/L (12-78); ALBUMIN 1.4 g/dL (3.4-5.0); ALKALINE PHOSPHATASE 98 U/L (50-136); ANION GAP 16.3 (8-16); ASPARTATE AMINOTRANSFERASE 17 U/L (15-37); CALCIUM 8.2 mg/dL (8.5-10.1); CARBON DIOXIDE 15.3 mmol/L (21-32); CHLORIDE 111 mmol/L (98-107); CREATININE 0.8 mg/dL (0.6-1.3); GLUCOSE 138 mg/dL (74-106); MAGNESIUM 1.5 mg/dL (1.8-2.4); PHOSPHORUS 3.4 mg/dL (2.5-4.9); POTASSIUM 3.6 mmol/L (3.5-5.1); SODIUM SERUM 139 mmol/L (136-145); TOTAL BILIRUBIN 0.4 mg/dL (0.0-1.0); TOTAL PROTEIN, SERUM 5.1 g/dL (6.4-8.2); UREA NITROGEN, BLOOD 20 mg/dL (7-18)
[2024-05-31] VITALS (23 sets, daily range): BP systolic 110–159; BP diastolic 54–97; PULSE 57–90; RESP 13–20; TEMP 97.4–98.5; O2SAT 94–99
[2024-05-31 01:01] LABS: ALANINE AMINOTRANSFERASE 27 U/L (12-78); ALBUMIN 1.4 g/dL (3.4-5.0); ALKALINE PHOSPHATASE 99 U/L (50-136); ANION GAP 15.7 (8-16); ASPARTATE AMINOTRANSFERASE 20 U/L (15-37); CALCIUM 8.1 mg/dL (8.5-10.1); CHLORIDE 111 mmol/L (98-107); CREATININE 0.7 mg/dL (0.6-1.3); GLUCOSE 137 mg/dL (74-106); MAGNESIUM 1.4 mg/dL (1.8-2.4); PHOSPHORUS 3.3 mg/dL (2.5-4.9); POTASSIUM 3.7 mmol/L (3.5-5.1); SODIUM SERUM 139 mmol/L (136-145); TOTAL BILIRUBIN 0.4 mg/dL (0.0-1.0); TOTAL PROTEIN, SERUM 5.2 g/dL (6.4-8.2); UREA NITROGEN, BLOOD 20 mg/dL (7-18)
[2024-05-31] MEDS: MAG SULF 2000 MG/WATER PREMIX 50 ML IV PRN (01:19)
[2024-05-31 04:22] LABS: BASOPHILS % (AUTO) 0.2 % (0.0-2.0); EOSINOPHILS # (AUTO) 0.2 K/uL (0-0.4); EOSINOPHILS % (AUTO) 1.7 % (0.0-4.0); HEMATOCRIT 31.9 % (36-48); HEMOGLOBIN 10.5 g/dL (12.0-16.0); LYMPHOCYTES # (AUTO) 1.2 K/uL (2.5-16.5); LYMPHOCYTES % (AUTO) 9.5 % (20.5-51.1); MEAN CORPUSCULAR HEMOGLOBIN 29 pg (27-31); MEAN CORPUSCULAR HGB CONC 33 g/dL (33-37); MEAN CORPUSCULAR VOLUME 88.3 fL (80-94); MONOCYTES # (AUTO) 0.5 K/uL (0.8-1.0); MONOCYTES % (AUTO) 3.9 % (1.7-9.3); NEUTROPHILS # (AUTO) 10.4 K/uL (1.8-7.7); NEUTROPHILS % (AUTO) 84.7 % (42.2-75.2); PLATELET COUNT (AUTO) 192 K/uL (140-450); RED BLOOD CELL COUNT(AUTO) 3.61 MIL/uL (4.20-5.40); RED CELL DISTRIBUTION WIDTH 19.6 % (11.6-13.7); WHITE BLOOD COUNT (AUTO) 12.3 K/uL (4.8-10.8)
[2024-05-31 04:34] LABS: ALANINE AMINOTRANSFERASE 28 U/L (12-78); ALBUMIN 1.6 g/dL (3.4-5.0); ALKALINE PHOSPHATASE 113 U/L (50-136); ANION GAP 15.8 (8-16); ASPARTATE AMINOTRANSFERASE 18 U/L (15-37); CALCIUM 8.6 mg/dL (8.5-10.1); CARBON DIOXIDE 17.1 mmol/L (21-32); CHLORIDE 110 mmol/L (98-107); CREATININE 0.8 mg/dL (0.6-1.3); GLUCOSE 106 mg/dL (74-106); MAGNESIUM 1.6 mg/dL (1.8-2.4); PHOSPHORUS 3.4 mg/dL (2.5-4.9); POTASSIUM 3.9 mmol/L (3.5-5.1); SODIUM SERUM 139 mmol/L (136-145); TOTAL BILIRUBIN 0.4 mg/dL (0.0-1.0); TOTAL PROTEIN, SERUM 5.9 g/dL (6.4-8.2); UREA NITROGEN, BLOOD 18 mg/dL (7-18)
[2024-05-31 09:02] LABS: ANION GAP 15.5 (8-16); CALCIUM 8.1 mg/dL (8.5-10.1); CARBON DIOXIDE 16.9 mmol/L (21-32); CHLORIDE 115 mmol/L (98-107); CREATININE 0.7 mg/dL (0.6-1.3); GLUCOSE 79 mg/dL (74-106); POTASSIUM 3.4 mmol/L (3.5-5.1); SODIUM SERUM 144 mmol/L (136-145); UREA NITROGEN, BLOOD 17 mg/dL (7-18)
[2024-05-31 09:10] LABS: MAGNESIUM 1.6 mg/dL (1.8-2.4); PHOSPHORUS 3.5 mg/dL (2.5-4.9)
[2024-05-31 12:34] LABS: ANION GAP 14.6 (8-16); CALCIUM 8.6 mg/dL (8.5-10.1); CARBON DIOXIDE 17.5 mmol/L (21-32); CHLORIDE 115 mmol/L (98-107); CREATININE 0.7 mg/dL (0.6-1.3); GLUCOSE 75 mg/dL (74-106); POTASSIUM 4.1 mmol/L (3.5-5.1); SODIUM SERUM 143 mmol/L (136-145); UREA NITROGEN, BLOOD 16 mg/dL (7-18)
[2024-05-31] MEDS: DEXTROSE 10% 1,000 ML IV SCH ×2 (13:55→17:30)
[2024-05-31] MEDS: LEVOFLOXACIN 500 MG/D5W PREMIX 100 ML IV SCH (15:18)
[2024-05-31 16:29] LABS: ANION GAP 14.9 (8-16); CALCIUM 8.4 mg/dL (8.5-10.1); CARBON DIOXIDE 17.7 mmol/L (21-32); CHLORIDE 112 mmol/L (98-107); CREATININE 0.6 mg/dL (0.6-1.3); GLUCOSE 154 mg/dL (74-106); POTASSIUM 3.6 mmol/L (3.5-5.1); SODIUM SERUM 141 mmol/L (136-145); UREA NITROGEN, BLOOD 15 mg/dL (7-18)
[2024-05-31 20:30] LABS: ANION GAP 13.2 (8-16); CALCIUM 7.9 mg/dL (8.5-10.1); CARBON DIOXIDE 19.3 mmol/L (21-32); CHLORIDE 109 mmol/L (98-107); CREATININE 0.7 mg/dL (0.6-1.3); GLUCOSE 141 mg/dL (74-106); POTASSIUM 3.5 mmol/L (3.5-5.1); SODIUM SERUM 138 mmol/L (136-145); UREA NITROGEN, BLOOD 14 mg/dL (7-18)
[2024-05-31] MEDS: POTASSIUM CHLORIDE 10 MEQ TABER PO PRN (21:44)
[2024-06-01] VITALS (24 sets, daily range): BP systolic 92–127; BP diastolic 49–68; PULSE 51–97; RESP 11–21; TEMP 97.2–98.2; O2SAT 96–100
[2024-06-01 00:37] LABS: CALCIUM 8.4 mg/dL (8.5-10.1); CARBON DIOXIDE 17.5 mmol/L (21-32); CHLORIDE 113 mmol/L (98-107); CREATININE 0.7 mg/dL (0.6-1.3); GLUCOSE 70 mg/dL (74-106); POTASSIUM 4.5 mmol/L (3.5-5.1); SODIUM SERUM 140 mmol/L (136-145); UREA NITROGEN, BLOOD 14 mg/dL (7-18)
[2024-06-01 04:40] LABS: BASOPHILS % (AUTO) 0.1 % (0.0-2.0); EOSINOPHILS # (AUTO) 0.2 K/uL (0-0.4); EOSINOPHILS % (AUTO) 1.6 % (0.0-4.0); HEMATOCRIT 27.5 % (36-48); LYMPHOCYTES # (AUTO) 2.1 K/uL (2.5-16.5); LYMPHOCYTES % (AUTO) 13.7 % (20.5-51.1); MEAN CORPUSCULAR HEMOGLOBIN 29 pg (27-31); MEAN CORPUSCULAR HGB CONC 33 g/dL (33-37); MEAN CORPUSCULAR VOLUME 88.1 fL (80-94); MONOCYTES # (AUTO) 0.6 K/uL (0.8-1.0); NEUTROPHILS # (AUTO) 12.6 K/uL (1.8-7.7); NEUTROPHILS % (AUTO) 80.6 % (42.2-75.2); PLATELET COUNT (AUTO) 180 K/uL (140-450); RED BLOOD CELL COUNT(AUTO) 3.12 MIL/uL (4.20-5.40); RED CELL DISTRIBUTION WIDTH 19.9 % (11.6-13.7); WHITE BLOOD COUNT (AUTO) 15.6 K/uL (4.8-10.8)
[2024-06-01 04:54] LABS: ANION GAP 15.6 (8-16); CALCIUM 8.5 mg/dL (8.5-10.1); CARBON DIOXIDE 17.3 mmol/L (21-32); CHLORIDE 111 mmol/L (98-107); CREATININE 0.7 mg/dL (0.6-1.3); GLUCOSE 75 mg/dL (74-106); POTASSIUM 3.9 mmol/L (3.5-5.1); SODIUM SERUM 140 mmol/L (136-145); UREA NITROGEN, BLOOD 13 mg/dL (7-18)
[2024-06-01] MEDS ORDERED: PIPERACILLIN/TAZOBACTAM 3.375 GM VIAL IV ONE (05:20)
[2024-06-01] MEDS: PIPERACILLIN/TAZOBACTAM 3.375 GM in DEXTROSE 5% 50 ML IV SCH (05:29)
[2024-06-01 08:39] LABS: ANION GAP 17.1 (8-16); CALCIUM 8.7 mg/dL (8.5-10.1); CARBON DIOXIDE 17.1 mmol/L (21-32); CHLORIDE 109 mmol/L (98-107); CREATININE 0.7 mg/dL (0.6-1.3); GLUCOSE 104 mg/dL (74-106); POTASSIUM 4.2 mmol/L (3.5-5.1); SODIUM SERUM 139 mmol/L (136-145); UREA NITROGEN, BLOOD 12 mg/dL (7-18)
[2024-06-01] MEDS ORDERED: DEXTROSE 50% 50 ML SYR IVP PRN (09:00)
[2024-06-01] MEDS ORDERED: INSULIN LISPRO SLIDING SCALE 100 UNITS/ML VIAL SUBQ PRN (09:00)
[2024-06-01] MEDS: LINEZOLID 600 MG TAB GT SCH (10:20)
[2024-06-01] MEDS: BLOOD GLUCOSE MONITORING 1 DEV DEV FS SCH ×2 (11:58→14:08)
[2024-06-01 12:51] LABS: CALCIUM 8.7 mg/dL (8.5-10.1); CARBON DIOXIDE 16.4 mmol/L (21-32); CHLORIDE 110 mmol/L (98-107); CREATININE 0.8 mg/dL (0.6-1.3); GLUCOSE 150 mg/dL (74-106); POTASSIUM 4.4 mmol/L (3.5-5.1); SODIUM SERUM 140 mmol/L (136-145); UREA NITROGEN, BLOOD 12 mg/dL (7-18)
[2024-06-01] MEDS: NACL 0.9% 1,000 ML IV SCH (13:20)
[2024-06-01] MEDS: DEXT 5% / NACL 0.45% 1,000 ML IV SCH (14:08)
[2024-06-01] MEDS: INSULIN REGULAR, HUMAN 100 UNIT in NACL 0.9% 100 ML IV SCH (14:17)
[2024-06-01 16:30] LABS: ANION GAP 15.6 (8-16); CALCIUM 8.2 mg/dL (8.5-10.1); CARBON DIOXIDE 16.3 mmol/L (21-32); CHLORIDE 110 mmol/L (98-107); CREATININE 0.7 mg/dL (0.6-1.3); GLUCOSE 192 mg/dL (74-106); POTASSIUM 3.9 mmol/L (3.5-5.1); SODIUM SERUM 138 mmol/L (136-145); UREA NITROGEN, BLOOD 11 mg/dL (7-18)
[2024-06-01 20:46] LABS: ANION GAP 16.1 (8-16); CALCIUM 8.2 mg/dL (8.5-10.1); CARBON DIOXIDE 15.8 mmol/L (21-32); CHLORIDE 110 mmol/L (98-107); CREATININE 0.7 mg/dL (0.6-1.3); GLUCOSE 141 mg/dL (74-106); POTASSIUM 3.9 mmol/L (3.5-5.1); SODIUM SERUM 138 mmol/L (136-145); UREA NITROGEN, BLOOD 11 mg/dL (7-18)
[2024-06-02] VITALS (20 sets, daily range): BP systolic 97–153; BP diastolic 55–87; PULSE 52–95; RESP 12–19; TEMP 97.1–97.5; O2SAT 97–100
[2024-06-02 00:48] LABS: ANION GAP 15.3 (8-16); CALCIUM 8.4 mg/dL (8.5-10.1); CARBON DIOXIDE 16.5 mmol/L (21-32); CHLORIDE 109 mmol/L (98-107); CREATININE 0.7 mg/dL (0.6-1.3); GLUCOSE 111 mg/dL (74-106); POTASSIUM 3.8 mmol/L (3.5-5.1); SODIUM SERUM 137 mmol/L (136-145); UREA NITROGEN, BLOOD 11 mg/dL (7-18)
[2024-06-02 00:50] LABS: MAGNESIUM 1.5 mg/dL (1.8-2.4); PHOSPHORUS 3.9 mg/dL (2.5-4.9)
[2024-06-02 04:36] LABS: BASOPHILS % (AUTO) 0.2 % (0.0-2.0); EOSINOPHILS # (AUTO) 0.3 K/uL (0-0.4); EOSINOPHILS % (AUTO) 1.7 % (0.0-4.0); HEMATOCRIT 24.5 % (36-48); LYMPHOCYTES # (AUTO) 1.3 K/uL (2.5-16.5); LYMPHOCYTES % (AUTO) 9.1 % (20.5-51.1); MEAN CORPUSCULAR HEMOGLOBIN 29 pg (27-31); MEAN CORPUSCULAR HGB CONC 33 g/dL (33-37); MEAN CORPUSCULAR VOLUME 89.5 fL (80-94); MONOCYTES # (AUTO) 0.7 K/uL (0.8-1.0); MONOCYTES % (AUTO) 4.6 % (1.7-9.3); NEUTROPHILS # (AUTO) 12.4 K/uL (1.8-7.7); NEUTROPHILS % (AUTO) 84.4 % (42.2-75.2); PLATELET COUNT (AUTO) 192 K/uL (140-450); RED BLOOD CELL COUNT(AUTO) 2.74 MIL/uL (4.20-5.40); RED CELL DISTRIBUTION WIDTH 19.9 % (11.6-13.7); WHITE BLOOD COUNT (AUTO) 14.7 K/uL (4.8-10.8)
[2024-06-02 05:00] LABS: ANION GAP 15.3 (8-16); CALCIUM 8.4 mg/dL (8.5-10.1); CARBON DIOXIDE 15.5 mmol/L (21-32); CHLORIDE 110 mmol/L (98-107); CREATININE 0.7 mg/dL (0.6-1.3); GLUCOSE 78 mg/dL (74-106); POTASSIUM 3.8 mmol/L (3.5-5.1); SODIUM SERUM 137 mmol/L (136-145); UREA NITROGEN, BLOOD 11 mg/dL (7-18)
[2024-06-02 05:04] LABS: MAGNESIUM 1.8 mg/dL (1.8-2.4)
[2024-06-02] MEDS: INSULIN LANTUS 100 UNITS/ML 10 ML VIAL SUBQ SCH (08:07)
[2024-06-02] MEDS: DEXTROSE 50% 50 ML SYR IVP SCH (08:18)
[2024-06-02] MEDS ORDERED: DEXTROSE 50% 50 ML SYR IVP PRN (11:00)
[2024-06-02 12:38] LABS: ANION GAP 15.3 (8-16); CALCIUM 8.4 mg/dL (8.5-10.1); CARBON DIOXIDE 17.4 mmol/L (21-32); CHLORIDE 110 mmol/L (98-107); CREATININE 0.7 mg/dL (0.6-1.3); GLUCOSE 199 mg/dL (74-106); POTASSIUM 3.7 mmol/L (3.5-5.1); SODIUM SERUM 139 mmol/L (136-145); UREA NITROGEN, BLOOD 9 mg/dL (7-18)
[2024-06-02 12:41] LABS: MAGNESIUM 1.6 mg/dL (1.8-2.4)
[2024-06-02] MEDS: BLOOD GLUCOSE MONITORING 1 DEV DEV FS SCH (16:40)
[2024-06-02] MEDS: INSULIN LISPRO SLIDING SCALE 100 UNITS/ML VIAL SUBQ PRN (16:46)
[2024-06-02] MEDS ORDERED: HYDROcodone/APAP 7.5/325 MG 1 TAB PO PRN (18:30)
[2024-06-02] MEDS ORDERED: ZOLPIDEM 5 MG TAB PO PRN (18:30)
[2024-06-02] MEDS ORDERED: INSULIN LANTUS 100 UNITS/ML 10 ML VIAL SUBQ SCH (21:00)
== END 2024-06-02 20:47 | disposition short-term general hospital (02) | DRG 871 ==
LOC: MED 12:14 → MTU 16:51 → MIC 21:17
PROVIDERS: ADMIT Student in an Organized Health Care Education/Training Program; ATTEND Student in an Organized Health Care Education/Training Program
PROC: 02HV33Z Insertion of Infusion Device into Superior Vena Cava, Percutaneous Approach (ICD-10-PCS; principal; 2024-05-26)
PROC: 5A0935A Assistance with Respiratory Ventilation, Less than 24 Consecutive Hours, High Flow/Velocity Cannula (ICD-10-PCS; 2024-05-26)
PROC: B548ZZA Ultrasonography of Superior Vena Cava, Guidance (ICD-10-PCS; 2024-05-26)
PROC: 5A0935A Assistance with Respiratory Ventilation, Less than 24 Consecutive Hours, High Flow/Velocity Cannula (ICD-10-PCS; 2024-05-27)
PROC: 5A0935A Assistance with Respiratory Ventilation, Less than 24 Consecutive Hours, High Flow/Velocity Cannula (ICD-10-PCS; 2024-05-28)
PROC: 5A0935A Assistance with Respiratory Ventilation, Less than 24 Consecutive Hours, High Flow/Velocity Cannula (ICD-10-PCS; 2024-05-29)
DX: A41.9 Sepsis, unspecified organism (principal); E11.10 Type 2 diabetes mellitus with ketoacidosis without coma; G93.41 Metabolic encephalopathy; J96.01 Acute respiratory failure with hypoxia; J69.0 Pneumonitis due to inhalation of food and vomit; N17.0 Acute kidney failure with tubular necrosis; E43 Unspecified severe protein-calorie malnutrition; I21.A1 Myocardial infarction type 2; J18.9 Pneumonia, unspecified organism; E87.0 Hyperosmolality and hypernatremia; N39.0 Urinary tract infection, site not specified; E11.22 Type 2 diabetes mellitus with diabetic chronic kidney disease; I12.9 Hypertensive chronic kidney disease with stage 1 through stage 4 chronic kidney disease, or unspecified chronic kidney disease; Z66 Do not resuscitate; Y95 Nosocomial condition; N18.9 Chronic kidney disease, unspecified; Z93.1 Gastrostomy status; Z88.8 Allergy status to other drugs, medicaments and biological substances; Z79.899 Other long term (current) drug therapy; Z68.25 Body mass index [BMI] 25.0-25.9, adult
CPT/HCPCS: 36415; 36600; 71045; 71250; 80048; 80053; 80076; 80202; 81001; 82803; 82948; 83605; 83735; 83880; 84100; 84484; 85025; 85610; 85730; 87040; 87070; 87075; 87081; 87086; 87186; 87205; 93005; 96361; 96365; 96366; 96375; 99285; J0692; J1450; J1815; J1956; J2001; J2405; J2470; J2543; J3370; J3475; J3480; J7030; J7060; Q0092